=== PATIENT | male | born 1985 ===

== ENCOUNTER 2025-05-24 16:51 | Outpatient (REF) | payer BC, SELFPAY ==
[2025-05-24 15:20] LABS: HCT 38.2 % (40.0-50.0); HGB 13.4 g/dL (13.5-17.5); MCH 30.2 pg (27.0-33.0); MCHC 35.1 % (32.0-36.0); MCV 86 fL (80-95); RBC 4.44 10^6/uL (4.36-5.78); RDW 11.9 % (11.8-14.1); RDW-SD 37.7 fL; WBC 2.16 10^3/uL (4.4-10.8)
[2025-05-24 15:40] LABS: ALT 96 U/L (16-63); AST 71 U/L (15-37); Albumin 3.7 g/dL (3.4-5.0); Alkaline Phosphatase 181 U/L (46-116); Anion Gap 10.1 mmol/L (3-11); BUN 12 mg/dL (7-18); Bilirubin, Total 2.3 mg/dL (0.2-1.0); CO2 27.9 mmol/L (21.0-32.0); Calcium 8.5 mg/dL (8.5-10.1); Chloride 94 mmol/L (98-107); Estimated GFR 111.42 (mL/min/1.73m2); Glucose 124 mg/dL (74-106); Potassium 4.0 mmol/L (3.5-5.1); Sodium 132 mmol/L (136-145); Total Protein 6.6 g/dL (6.4-8.2)
[2025-05-24 15:53] LABS: Abs Immature Grans 0.00 10^3/uL (0.0-0.06); Immature Grans % 0.0 %; RBC Morphology Normal
[2025-05-24 15:54] LABS: Platelet Count 65 10^3/uL (130-400)
[2025-05-25 11:12] LABS: Lyme Ab w Rflx to Lyme Confirm Positive (Negative)
[2025-05-25 13:20] LABS: Lyme IgG Ab Positive (Negative)
[2025-05-28 16:58] LABS: B. miyamotoi PCR Negative (Negative); Babesia divergens/MO-1 Negative (Negative); Ehrlichia muris eauclairensis Negative (Negative)
== END 2025-05-24 16:52 | disposition home or self-care (01) ==
LOC: LBN 16:51
PROVIDERS: Visit Provider Physician Assistant Medical
DX: R68.89 Other general symptoms and signs (principal)
CPT/HCPCS: 80053; 86617; 87798; 85025; 86618

== ENCOUNTER 2025-07-04 13:09 | Outpatient (CLI) | payer BC, SELFPAY ==
[2025-07-04 17:05] LABS: Abs Immature Grans 0.03 10^3/uL (0.0-0.06); HCT 41.0 % (40.0-50.0); HGB 14.7 g/dL (13.5-17.5); Immature Grans % 0.3 %; MCH 30.8 pg (27.0-33.0); MCHC 35.9 % (32.0-36.0); MCV 86 fL (80-95); MPV 10.3 fL (8.0-11.0); Platelet Count 237 10^3/uL (130-400); RBC 4.78 10^6/uL (4.36-5.78); RDW 11.9 % (11.8-14.1); RDW-SD 37.6 fL; WBC 9.90 10^3/uL (4.4-10.8)
[2025-07-04 18:01] LABS: ALT 37 U/L (16-63); AST 22 U/L (15-37); Albumin 4.5 g/dL (3.4-5.0); Alkaline Phosphatase 91 U/L (46-116); Anion Gap 8.2 mmol/L (3-11); BUN 9 mg/dL (7-18); Bilirubin, Total 1.6 mg/dL (0.2-1.0); CO2 27.8 mmol/L (21.0-32.0); Calcium 9.4 mg/dL (8.5-10.1); Chloride 102 mmol/L (98-107); Estimated GFR 98.18 (mL/min/1.73m2); Glucose 97 mg/dL (74-106); Potassium 4.1 mmol/L (3.5-5.1); Sodium 138 mmol/L (136-145); Total Protein 7.6 g/dL (6.4-8.2)
== END 2025-07-04 13:10 | disposition home or self-care (01) ==
PROVIDERS: Visit Provider Physician Assistant Medical
DX: A77.49 Other ehrlichiosis (principal)
CPT/HCPCS: 36415; 80053; 85025